=== PATIENT | female | born 2000 | race Hispanic/Latino ===

== ENCOUNTER 2025-01-05 10:09 | Inpatient (IN) | payer BC ==
[2025-01-04 11:34] LABS: Hep B Surf Ag Non-Reactive S/CO (NonReactive)
[2025-01-04 11:35] LABS: Syphilis Antibody Index 0.06 S/CO (<1.00 Non-Reactive)
[2025-01-04 12:25] LABS: Hematocrit 30.9 % (34.9-44.5); Hemoglobin 10.4 g/dL (12.0-15.5); Mean Corpuscular Hemoglobin 27.4 pg (27.0-33.0); Mean Corpuscular Volume 81.3 fL (81.6-98.3); Platelet Count 244 10x3/uL (150-450); Red Blood Cell (RBC) Count 3.80 10x6/uL (3.90-5.03); White Blood Cell (WBC) Count 10.07 10x3/uL (3.5-10.5)
[2025-01-04 16:34] VITALS: BMI 32.0
[2025-01-05] MEDS ORDERED: Ondansetron PF 4 MG/2 ML Vial IVP PRN ×2 (11:10→17:00)
[2025-01-05] MEDS ORDERED: Oxytocin 30 units/NS 500 ML 500 ML IV SCH (11:10)
[2025-01-05] MEDS ORDERED: hydrALAZINE 20 MG/ML VIAL SLOW IVP PRN ×2 (11:10→17:00)
[2025-01-05] MEDS ORDERED: Bicitra 30 ML UDCUP PO PRN (11:10)
[2025-01-05] MEDS: Famotidine/PF 20 mg/2ml Vial SLOW IVP PRN (11:34)
[2025-01-05] MEDS ORDERED: diphenhydrAMINE 50 MG/ML VIAL IVP PRN (13:34)
[2025-01-05] MEDS ORDERED: Lanolin Ointment 7 GM TUBE TOP PRN (17:00)
[2025-01-05] MEDS ORDERED: diphenhydrAMINE 25 MG CAP PO PRN (17:00)
[2025-01-05] MEDS ORDERED: Bisacodyl 10 MG SUPP PR PRN (17:00)
[2025-01-05] MEDS: Sodium Bicarbonate 2.5 MEQ/5 ML SDV ONE (17:17)
[2025-01-05] MEDS: Tranexamic Acid 1,000 MG/10 ML VIAL ONE (17:17)
[2025-01-05] MEDS: Phenylephrine 40 MG/NS 250 ML 250 ML ONE (17:17)
[2025-01-05] MEDS: Ondansetron PF 4 MG/2 ML Vial ONE (17:17)
[2025-01-05] MEDS: Oxytocin 10 UNITS/ML VIAL ONE (17:17)
[2025-01-05] MEDS: Dexamethasone 10 MG/ML VIAL ONE (17:17)
[2025-01-05] MEDS: Ketorolac Tromethamine 30 MG (1 mL) VIAL ONE (17:17)
[2025-01-05] MEDS: Boostrix 0.5 ML (Tdap) VIAL (>/=7 yrs of age) IM ONE (18:02)
[2025-01-05] MEDS: Ketorolac Tromethamine 30 MG (1 mL) VIAL IVP SCH (18:11)
[2025-01-05] MEDS: Ferrous Sulfate 325 MG TAB PO SCH (23:34)
[2025-01-06] MEDS ORDERED: HYDROcodone/Acetaminophen 5/325 mg Tablet PO PRN ×2 (01:45)
[2025-01-06 05:38] LABS: Hematocrit 26.3 % (34.9-44.5); Hemoglobin 8.8 g/dL (12.0-15.5); Mean Corpuscular Hemoglobin 27.3 pg (27.0-33.0); Mean Corpuscular Volume 81.7 fL (81.6-98.3); Platelet Count 210 10x3/uL (150-450); Red Blood Cell (RBC) Count 3.22 10x6/uL (3.90-5.03); White Blood Cell (WBC) Count 18.27 10x3/uL (3.5-10.5)
[2025-01-06] MEDS: Acetaminophen 325 MG TAB PO PRN (08:10)
[2025-01-06] MEDS: Ibuprofen 800 MG TAB PO SCH (14:00)
[2025-01-06] MEDS: Simethicone Chewable 80 MG TAB PO PRN (20:46)
[2025-01-07 11:38] VITALS: BP 109/64; TEMP 98.9
== END 2025-01-07 14:00 | disposition home or self-care (01) | DRG 788 ==
LOC: CSHLD 10:09 → CSHPP 16:40
PROVIDERS: ADMIT Obstetrics & Gynecology; ATTEND Obstetrics & Gynecology
PROC: 10D00Z1 Extraction of Products of Conception, Low, Open Approach (ICD-10-PCS; principal; 2025-01-05)
DX: O32.1XX0 Maternal care for breech presentation, not applicable or unspecified (principal); Z3A.39 39 weeks gestation of pregnancy; Z37.0 Single live birth; Q51.3 Bicornate uterus; Z79.899 Other long term (current) drug therapy
CPT/HCPCS: 36415; 51702; 85027; 86780; 86850; 86900; 86901; 87340; J1100; J1885; J2274; J2405; J2550; J2590; J3490